=== PATIENT | female | born 1950 | race Caucasian/White ===

== ENCOUNTER 2021-08-18 14:57 | Outpatient (CLI) | payer OTHER, SELFPAY ==
[2021-08-18 15:55] LABS: INR 3.9; Prothrombin Time 37.3 Seconds (11.1-14.7)
== END 2021-08-18 14:58 | disposition home or self-care (01) ==
LOC: ANHLAB 15:03
PROVIDERS: PCP Student in an Organized Health Care Education/Training Program; Visit Provider Student in an Organized Health Care Education/Training Program
DX: D68.59 Other primary thrombophilia (principal)
CPT/HCPCS: 36415; 85610

== ENCOUNTER 2021-08-23 12:08 | Outpatient (CLI) | payer OTHER, SELFPAY ==
[2021-08-23 12:39] LABS: Prothrombin Time 29.9 Seconds (11.1-14.7)
== END 2021-08-23 12:09 | disposition home or self-care (01) ==
PROVIDERS: PCP Student in an Organized Health Care Education/Training Program; Visit Provider Student in an Organized Health Care Education/Training Program
DX: D68.59 Other primary thrombophilia (principal)
CPT/HCPCS: 36415; 85610

== ENCOUNTER 2021-08-30 13:47 | Outpatient (CLI) | payer OTHER, SELFPAY | END 2021-08-30 13:48 | disposition home or self-care (01) | PROVIDERS: PCP Student in an Organized Health Care Education/Training Program; Visit Provider Student in an Organized Health Care Education/Training Program | DX: D68.59 Other primary thrombophilia (principal) | CPT/HCPCS: 36415; 85610 ==

== ENCOUNTER 2021-10-01 12:14 | Outpatient (CLI) | payer OTHER, SELFPAY ==
[2021-10-01 12:47] LABS: INR 2.2; Prothrombin Time 23.7 Seconds (11.1-14.7)
== END 2021-10-01 12:15 | disposition home or self-care (01) ==
PROVIDERS: PCP Student in an Organized Health Care Education/Training Program; Visit Provider Student in an Organized Health Care Education/Training Program
DX: D68.59 Other primary thrombophilia (principal)
CPT/HCPCS: 36415; 85610

== ENCOUNTER 2022-09-21 10:03 | Emergency (ER) | payer OTHER, SELFPAY ==
[2022-09-21 10:06] VITALS: BP 173/96; PULSE 90; RESP 14; TEMP 36.4; O2SAT 93
[2022-09-21 10:44] LABS: Basophils Percent Auto 0.3 % (0.2-1.2); Eosinophils Percent Auto 0.2 % (0-4.4); Hematocrit 44.2 % (37.0-47.0); Hemoglobin 14.9 g/dL (12.0-15.0); Immature Granulocyte Absolute 0.04 K/mm3 (0.00-0.031); Immature Granulocyte Percent A 0.4 % (0-0.5); Lymphocytes Absolute Auto 3.12 K/mm3 (0.9-3.2); Lymphocytes Percent Auto 30.6 % (18.3-44.2); Mean Corpuscular HGB Conc 33.7 g/dl (32-36); Mean Corpuscular Volume 94.8 fl (80-100); Mean Platelet Volume 10.7 fl (7.4-10.4); Monocytes Absolute Auto 0.8 K/mm3 (0.1-0.6); Monocytes Percent Auto 7.4 % (2.6-8.5); Neutrophils Absolute Auto 6.2 K/mm3 (1.3-6.7); Neutrophils Percent Auto 61.1 % (45.5-73.1); Platelet Count Result 222 k/mm3 (150-375); Red Blood Count 4.66 M/mm3 (4.2-5.4); Red Cell Distribution Width 12.3 % (11.5-14.5); White Blood Count 10.2 K/mm3 (4.5-10.0)
[2022-09-21 10:46] LABS: Partial Thromboplastin Time 59.5 SECONDS (22.3-36.8); Prothrombin Time 58.9 Seconds (11.1-14.7)
[2022-09-21 10:49] LABS: Alanine Aminotransferase 28 U/L (6-35); Albumin Level 4.4 g/dL (3.5-5.1); Alkaline Phosphatase 94 U/L (38-126); Anion Gap 10 mmol/L (8-16); Aspartate Amino Transferase 41 U/L (14-36); Bilirubin,Total 0.6 mg/dL (0.2-1.3); Blood Urea Nitrogen 10 mg/dL (7-17); Calcium 8.9 mg/dL (8.4-10.2); Carbon Dioxide 28 mmol/L (22-30); Chloride 97 mmol/L (98-107); Estimated Glomerular Filt Rate > 60; Glucose 148 mg/dL (65-110); Potassium 3.4 mmol/L (3.4-5.0); Sodium 135 mmol/L (137-145)
[2022-09-21 10:59] LABS: INR 7.1
--- NOTE | 2022-09-21 14:01 | ED.RECABL ---
HPI - Recheck/Abnormal Lab/Rx General Chief Complaint: Recheck/Abnormal Lab/Rx Stated Complaint: INR >8.0 Time Seen by Provider: 09/21/22 13:11 Source: patient and old records reviewed Mode of arrival: ambulatory Limitations: no limitations History of Present Illness HPI narrative: Patient is a 71 y/o female who presents to the ED with c/o elevated INR. Patient takes warfarin 6 mg daily due to history of PE. She had her INR checked on 09/06 at which point it was 2.5. She had her labs drawn outpatient today at which point her INR was found to be greater than 8. She was then referred to the ED for further evaluation by her primary. Patient denies any acute issues. Denies any sort of bleeding. Anne and I are very tenotomized liver, chest pain coagulopathy bleeding, epistaxis, hematemesis, abdominal pain, melena, rectal bleeding. Related Data Home Medications Medication Instructions Recorded Confirmed warfarin 6 mg tablet 6 mg PO DAILY 09/21/22 Allergies Allergy/AdvReac Type Severity Reaction Status Date / Time benzonatate Allergy Severe CONFUSION, Verified 09/21/22 10:42 NAUSEA Review of Systems Review of Systems: CONSTITUTIONAL: Denies fever, chills, or sweats. ENT: Denies rhinorrhea, congestion, sore throat, epistaxis. CARDIOVASCULAR: Denies chest pain, palpitations, or edema. RESPIRATORY: Denies dyspnea. GASTROINTESTINAL: Denies abdominal pain, nausea, vomiting, rectal bleeding, melena, or diarrhea. GENITOURINARY: Denies dysuria or hematuria. SKIN: Denies bleeding. MUSCULOSKELETAL: Denies back pain, joint pain, or myalgia. NEUROLOGIC: Denies headache, numbness, or weakness. All systems reviewed & are unremarkable except as noted in HPI and below [facility] Past Medical History Medical History (Updated 09/21/22 @ 14:31 by Tammy Titus PA-C) Diabetes mellitus Emphysema, unspecified History of pulmonary embolism Hyperlipidemia Hypertension Surgical History Surgical History (Updated 09/21/22 @ 14:31 by Tammy Titus PA-C) No pertinent past surgical history Social History Social History (Updated 09/21/22 @ 14:31 by Tammy Titus PA-C) Smoking status: Current every day smoker Tobacco type: cigarettes Exam Narrative: GENERAL: Well appearing, well-nourished, non-toxic, in no acute distress. HEAD: Normocephalic, atraumatic. ENT: PERRLA, EOMI, conjunctiva clear. No epistaxis or nasal discharge. NECK: Supple. No adenopathy, no masses. RESPIRATORY: Airway patent, respirations nonlabored. Coarse breath sounds bilaterally, no focal consolidation, no wheezing. CARDIOVASCULAR: Regular rate and rhythm without murmurs, rubs, or gallops. Peripheral pulses 2+ and equal bilaterally. ABDOMINAL: Soft, nontender, nondistended, no hepatosplenomegaly. Normoactive BS. MUSCULOSKELETAL: Moves all extremities. Strength/ROM intact without gross deformities. SKIN: Warm, dry, normal color. No rashes. No ecchymosis. NEURO: A&O X3. Speech clear. Cranial nerves II-XII grossly intact. Steady gait. No ataxic movements. PSYCHIATRIC: Appropriate mood and affect. Normal interaction. Course Consultations Consultation #1: Discussed case with patient's PCP, will follow up with outpatient lab testing. Date: 09/21/22 Time: 14:25 Vital Signs Vital signs: Vital Signs Temperature 97.6 F 09/21/22 10:06 Pulse Rate 90 09/21/22 10:06 Respiratory Rate 14 09/21/22 10:06 Blood Pressure 173/96 H 09/21/22 10:06 Pulse Oximetry 93 09/21/22 10:06 Oxygen Delivery Room Air 09/21/22 10:06 Temperature 97.6 F 09/21/22 10:06 Pulse Rate 90 09/21/22 10:06 Respiratory Rate 14 09/21/22 10:06 Blood Pressure 173/96 H 09/21/22 10:06 Pulse Oximetry 93 09/21/22 10:06 Oxygen Delivery Room Air 09/21/22 10:06 MDM - Recheck/Abnormal Lab/Rx MDM Narrative Medical decision making narrative: Patient presented to ED with report of elevated INR. Labs revealed INR of 7.1. Patient is on w
== END 2022-09-21 14:51 | disposition home or self-care (01) ==
PROVIDERS: Emergency Provider Emergency Medicine; PCP Student in an Organized Health Care Education/Training Program
DX: T45.511A Poisoning by anticoagulants, accidental (unintentional), initial encounter (principal); Z79.01 Long term (current) use of anticoagulants; Z86.711 Personal history of pulmonary embolism; I10 Essential (primary) hypertension; E78.5 Hyperlipidemia, unspecified; E11.9 Type 2 diabetes mellitus without complications; J43.9 Emphysema, unspecified
CPT/HCPCS: 36415; 80053; 85025; 85610; 85730; 99283

== ENCOUNTER 2022-09-23 13:39 | Outpatient (RCR) | payer OTHER, SELFPAY ==
[2022-09-23 14:15] LABS: INR 4.7; Prothrombin Time 42.7 Seconds (11.1-14.7)
== END 2022-12-22 23:59 | disposition home or self-care (01) ==
LOC: ANHLAB 13:39
PROVIDERS: Physician Assistant; PCP Student in an Organized Health Care Education/Training Program; Visit Provider Student in an Organized Health Care Education/Training Program
DX: Z51.81 Encounter for therapeutic drug level monitoring (principal); R79.1 Abnormal coagulation profile; Z79.01 Long term (current) use of anticoagulants
CPT/HCPCS: 36415; 85610

== ENCOUNTER 2023-05-29 10:45 | Outpatient (CLI) | payer OTHER, SELFPAY ==
[2023-05-29 11:33] LABS: Basophils Percent Auto 0.4 % (0.2-1.2); Eosinophils Absolute Auto 0.1 K/mm3 (0-0.3); Eosinophils Percent Auto 1.1 % (0-4.4); Hematocrit 38.6 % (37.0-47.0); Hemoglobin 13.4 g/dL (12.0-15.0); Immature Granulocyte Absolute 0.03 K/mm3 (0.00-0.031); Immature Granulocyte Percent A 0.3 % (0-0.5); Lymphocytes Absolute Auto 2.89 K/mm3 (0.9-3.2); Lymphocytes Percent Auto 32.1 % (18.3-44.2); Mean Corpuscular HGB Conc 34.7 g/dl (32-36); Mean Corpuscular Hemoglobin 32.4 pg (26-34); Mean Corpuscular Volume 93.2 fl (80-100); Mean Platelet Volume 10.7 fl (7.4-10.4); Monocytes Absolute Auto 0.6 K/mm3 (0.1-0.6); Monocytes Percent Auto 6.2 % (2.6-8.5); Neutrophils Absolute Auto 5.4 K/mm3 (1.3-6.7); Neutrophils Percent Auto 59.9 % (45.5-73.1); Platelet Count Result 221 k/mm3 (150-375); Red Blood Count 4.14 M/mm3 (4.2-5.4); Red Cell Distribution Width 12.6 % (11.5-14.5)
[2023-05-29 11:43] LABS: INR 1.6
[2023-05-29 12:09] LABS: Potassium 3.7 mmol/L (3.4-5.0)
[2023-05-29 12:11] LABS: Alanine Aminotransferase 23 U/L (6-35); Albumin Level 4.2 g/dL (3.5-5.1); Alkaline Phosphatase 83 U/L (38-126); Anion Gap 8 mmol/L (8-16); Aspartate Amino Transferase 28 U/L (14-36); Bilirubin,Total 0.4 mg/dL (0.2-1.3); Blood Urea Nitrogen 14 mg/dL (7-17); Calcium 8.7 mg/dL (8.4-10.2); Carbon Dioxide 25 mmol/L (22-30); Chloride 97 mmol/L (98-107); Cholesterol 124 mg/dL (0-200); Estimated Glomerular Filt Rate > 60; Glucose 129 mg/dL (65-110); HDL Direct 40 mg/dL; Sodium 130 mmol/L (137-145); Triglycerides 104 mg/dL (<150)
[2023-05-29 12:18] LABS: Creatinine Urine 63.9 mg/dL
[2023-05-29 12:21] LABS: LDL Cholesterol Direct 53 mg/dL
[2023-05-29 12:22] LABS: Microalbumin Urine Random 6.4 mg/L (0-16.7)
[2023-05-29 12:26] LABS: Vitamin D 25 Hydroxy 60.2 ng/mL
== END 2023-05-29 10:46 | disposition home or self-care (01) ==
LOC: ANHLAB 10:49
PROVIDERS: PCP Student in an Organized Health Care Education/Training Program; Visit Provider Student in an Organized Health Care Education/Training Program
DX: E11.59 Type 2 diabetes mellitus with other circulatory complications (principal); D68.59 Other primary thrombophilia; M32.9 Systemic lupus erythematosus, unspecified; E55.9 Vitamin D deficiency, unspecified; I15.2 Hypertension secondary to endocrine disorders; E78.5 Hyperlipidemia, unspecified; E11.69 Type 2 diabetes mellitus with other specified complication
CPT/HCPCS: 36415; 80053; 80061; 82043; 82306; 84443; 85025; 85610; 86038